=== PATIENT | female | born 1935 | race Caucasian/White ===

== ENCOUNTER 2016-11-22 17:29 | Emergency (ER) | payer MEDICARE ==
[2016-11-22 17:40] VITALS: BP 164/141
--- NOTE | 2016-11-22 17:44 | ED ---
Hypertension - HPI Summary HPI Summary: 81 YEAR OLD FEMALE PRESENTS WITH COMPLAINS OF DIZZINESS AND HYPERTENSION - History of Current Complaint Chief Complaint: UCGeneralIllness Stated Complaint: HIGH BLOOD PRESSURE Time Seen by Provider: 11/22/16 17:41 Hx Obtained From: Patient, Family/[place] Onset/Duration: Started Hours Ago Aggravating Factor(s): Exertion - Allergies/Home Medications Allergies/Adverse Reactions: Allergies Allergy/AdvReac Type Severity Reaction Status Date / Time Penicillins Allergy Severe Difficulty Verified 08/23/15 08:48 Breathing PMH/Surg Hx/FS Hx/Imm Hx Cardiovascular History: Reports: Hx Angina, Hx Hypertension Respiratory History: Reports: Hx Chronic Obstructive Pulmonary Disease (COPD) - NOTED ON CXR ON 08/17/15. 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 - Surgical History Surgery Procedure, Year, and Place: HYSTO, TUBAL - Immunization History Date of Tetanus Vaccine: PT STATES UNSURE Infectious Disease History: No Infectious Disease History: Denies: Traveled Outside the [place] in Last 30 Days - Social History Alcohol Use: Occasionally Substance Use Type: Reports: None Smoking Status (MU): Never Smoked Tobacco Have You Smoked in the Last Year: No Review of Systems Positive: Fatigue Eyes: Negative ENT: Negative Positive: Other - HYPERTENSION Respiratory: Negative Gastrointestinal: Negative Genitourinary: Negative Musculoskeletal: Negative Skin: Negative Positive: Headache, Weakness, Syncope All Other Systems Reviewed And Are Negative: Yes Physical Exam Triage Information Reviewed: Yes Vital Signs On Initial Exam: Initial Vitals Temp Pulse Resp BP Pulse Ox 37.4 C 84 18 164/141 100 11/22/16 17:36 11/22/16 17:36 11/22/16 17:36 11/22/16 17:36 11/22/16 17:36 Vital Signs Reviewed: No Skin: Positive: Warm Head/Face: Positive: Normal Head/Face Inspection ENT: Positive: Normal ENT inspection Neck: Positive: Supple Respiratory/Lung Sounds: Positive: Clear to Auscultation Cardiovascular: Positive: Normal Abdomen Description: Positive: Nontender Diagnostics - Vital Signs Vital Signs Temp Pulse Resp BP Pulse Ox 11/22/16 17:36 37.4 C 84 18 164/141 100 - Laboratory Lab Statement: Any lab studies that have been ordered have been reviewed, and results considered in the medical decision making process. Hypertension Course/Dx - Diagnoses Provider Diagnoses: Hypertension Discharge - Discharge Plan Condition: Guarded Disposition: TRANS HIGHER LVL OF CARE FAC Referrals: Briana Carlson MD [Primary Care Provider] -
== END 2016-11-22 18:20 | disposition short-term general hospital (02) ==
LOC: UCEAST 17:29
DX: I10 Essential (primary) hypertension (principal); R42 Dizziness and giddiness; R53.83 Other fatigue; R55 Syncope and collapse; I20.9 Angina pectoris, unspecified; J44.9 Chronic obstructive pulmonary disease, unspecified; Z85.828 Personal history of other malignant neoplasm of skin; Z88.0 Allergy status to penicillin
CPT/HCPCS: 93005; 99203; G0463

== ENCOUNTER 2016-11-22 18:36 | Emergency (ER) | payer MEDICARE ==
[2016-11-22 21:08] LABS: Hematocrit 38 % (35-47); Hemoglobin 12.6 g/dl (12.0-16.0); Mean Corpuscular HGB Conc 33 g/dl (31-36); Mean Corpuscular Hemoglobin 28 pg (27-31); Mean Corpuscular Volume 83 fL (80-97); Mean Platelet Volume 7 um3 (7.4-10.4); Red Blood Count 4.54 10^6/ul (4.0-5.4); Red Cell Distribution Width 14 % (10.5-15); White Blood Count 5.9 10^3/ul (3.5-10.8)
[2016-11-22 21:27] LABS: Troponin I 0.01 ng/mL (<0.04)
[2016-11-22 21:28] LABS: Albumin 3.4 g/dL (3.2-5.2); BUN/Creatinine Ratio 12.9 (8-20); Calcium 9.3 mg/dL (8.6-10.3); EGFR African American 49.4 (>60); EGFR Non-African American 38.4 (>60); Potassium 4.3 mmol/L (3.5-5.0); Total Bilirubin 0.4 mg/dL (0.2-1.0); Total Protein 6.4 g/dL (6.4-8.9)
--- NOTE | 2016-11-22 21:33 | RAD ---
Indication: Hypertension and vertigo. CT of the brain was performed without IV contrast. Ventricular structures are midline. No midline shift is noted. The extra-axial spaces are unremarkable. There is no evidence of intracranial mass or hemorrhage. No other high or low density lesions are identified. Mastoid air cells and paranasal sinuses are otherwise unremarkable. IMPRESSION: No intracranial mass or hemorrhage is noted.
[2016-11-22 21:40] LABS: T4 8.01 mcg/mL (6.09-12.23)
[2016-11-22 21:40] LABS: Urine Bacteria Absent (Absent); Urine Bilirubin Negative (Negative); Urine Glucose Negative (Negative); Urine Nitrite Negative (Negative)
--- NOTE | 2016-11-22 21:48 | RAD ---
Indication: Hypertension. Single frontal view of the chest performed at 2102 hours was reviewed. Comparison is made with previous exam dated August 17, 2015. No mediastinal shift is noted. Lung healy appear hyperinflated. No pleural fluid, pneumonia or pneumothorax is noted. IMPRESSION: HYPERINFLATED LUNG HEALY WITHOUT EVIDENCE OF ACTIVE CARDIOPULMONARY DISEASE.
[2016-11-22] MEDS ORDERED: Benzonatate CAP* 100 MG PO ONE (22:26)
[2016-11-22 22:52] VITALS: BP 142/68
--- NOTE | 2016-11-23 02:44 | ED ---
Chloe Craft Rebecca, scribed for Tahmina Ferraro MD on 11/22/16 at 2038 . Hypertension - HPI Summary HPI Summary: Pt is an 81 y/o F BIBA from [facility] who presents to ED due to concerns of elevated BP and feeling generalized weakness which began today. Pt reports that she had gone to [facility] initially after taking her BP at home which was about 180 systolic and that she felt "like I couldn't get up and get around." BP at [facility] was 164/141. Notes tinnitus, bilateral hand stiffness and increased urinary frequency. She additionally c/o cough and chest congestion secondary to recent illness that moved into her chest about 3 weeks ago. Denies SALAZAR and any pain. Pt reports that yesterday she had an appointment with Dr. Avila (ENT ) to evaluate tinnitus and she states that it was not her hearing causing the tinnitus and that he suspected a TIA after she described an episode of dizziness and generalized weakness that occurred this August (3 months ago) and another that occurred about 1 month ago after which she was given a Dx of vertigo. PCP is Dr. Carlson. Takes Gabapentin 100 mg TID. - History of Current Complaint Chief Complaint: EDHypertension Stated Complaint: STROKE-LIKE SYMPTOMS-SENT FROM Time Seen by Provider: 11/22/16 20:34 Hx Obtained From: Patient Onset/Duration: Started Hours Ago, Still Present Timing: Constant Reported Blood Pressure Prior To Arrival: 164/[address] [facility] Aggravating Factor(s): Nothing Alleviating Factor(s): Nothing Associated Signs & Symptoms: Weakness - Generalized, Urinary Symptoms - Increased urinary frequency - Allergies/Home Medications Allergies/Adverse Reactions: Allergies Allergy/AdvReac Type Severity Reaction Status Date / Time Penicillins Allergy Severe Difficulty Verified 08/23/15 08:48 Breathing PMH/Surg Hx/FS Hx/Imm Hx Respiratory History: Reports: Hx Chronic Obstructive Pulmonary Disease (COPD) - NOTED ON CXR ON 08/17/15. 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 - Surgical History Surgery Procedure, Year, and Place: HYSTO, TUBAL - Immunization History Date of Tetanus Vaccine: PT STATES UNSURE Infectious Disease History: No Infectious Disease History: Denies: Traveled Outside the [place] in Last 30 Days - Family History Known Family History: Positive: Unknown - Pt was adopted - Social History Lives: With Family - disabled son, other son lives next door Alcohol Use: Occasionally Substance Use Type: Reports: None Smoking Status (MU): Never Smoked Tobacco Have You Smoked in the Last Year: No Review of Systems Positive: Other - Elevated BP Positive: Other - Tinnitus Cardiovascular: Negative Positive: Cough, Other - Chest congestion Positive: frequency - Increased urinary frequency Positive: Other - Bilateral hand stiffness; NEGATIVE: pain Positive: Weakness - Generalized weakness. Negative: Headache Psychological: Normal All Other Systems Reviewed And Are Negative: Yes Physical Exam Triage Information Reviewed: Yes Vital Signs On Initial Exam: Initial Vitals Temp Pulse Resp BP Pulse Ox 99.7 F 81 16 146/59 99 11/22/16 19:00 11/22/16 19:00 11/22/16 19:00 11/22/16 19:00 11/22/16 19:00 Vital Signs Reviewed: Yes Appearance: Positive: No Pain Distress, Well-Nourished, Ill-Appearing Skin: Positive: Warm, Skin Color Reflects Adequate Perfusion Head/Face: Positive: Normal Head/Face Inspection Eyes: Positive: EOMI, CHANDA, Conjunctiva Clear ENT: Positive: Normal ENT inspection, Pharynx normal, TMs normal. Negative: Muffled/hoarse voice Neck: Positive: Supple, Nontender, No Lymphadenopathy, Other: - No bruit Respiratory/Lung Sounds: Positive: Clear to Auscultation, Breath Sounds Present , Other - No respiratory distress Cardiovascular: Positive: RRR, Pulses are Symmetrical in both Upper and Lower Extremities, Other - Brisk capillary refill Abdomen Description: Positive: Nontender, Soft Bowel Sounds: Positive: Present Musculoskeletal: Positive: Strength/ROM Intact, Other - No calf tenderness. Negative: Edema Left, Edema Right Neurological: Positive: Sensory/Motor Intact, Alert, Oriented to Person Place, Time, Normal Gait, Facial Symmetry, Speech Normal Psychiatric: Positive: Normal - [place] Coma Scale Best Eye Response: 4 - Spontaneous Best Motor Response: 6 - Obeys Commands Best Verbal Response: 5 - Oriented Coma Scale Total: 15 Diagnostics - Vital Signs Vital Signs Temp Pulse Resp BP Pulse Ox 11/22/16 20:30 87 15 143/65 99 11/22/16 20:05 27 169/70 11/22/16 20:00 93 20 99 11/22/16 19:30 81 12 157/76 99 11/22/16 19:00 99.7 F 80 15 146/59 100 - Laboratory Result Diagrams: 11/22/16 20:58 11/22/16 20:58 Lab Statement: Any lab studies that have been ordered have been reviewed, and results considered in the medical decision making process. - Radiology CXR Xray Interpretation: No Acute Changes - HYPERINFLATED LUNG HEALY WITHOUT EVIDENCE OF ACTIVE CARDIOPULMONARY DISEASE. ED physician reviewed radiology report and agrees. Radiology Interpretation Completed By: Radiologist - CT Brain CT CT Interpretation: No Acute Changes - No intracranial mass or hemorrhage is noted. ED physician reviewed radiology report and agrees. CT Interpretation Completed By: Radiologist - EKG 2038 Cardiac Rate: NL - 92 bpm EKG Rhythm: Sinus Rhythm EKG Interpretation: Nl AV/IV CT, nl QTC, nl axis Re-Evaluation - Re-Evaluation First Eval Re-Evaluation Time: 22:15 Change: Improved Comment: Pt feels improved, advised about results and pt is comfortable with discharge. Hypertension Course/Dx - Course Assessment/Plan: Pt is an 81 y/o F BIBA from [facility] who presents to ED due to concerns of elevated BP and feeling generalized weakness which began today. Pt reports that she had gone to [facility] initially after taking her BP at home which was about 180 systolic and that she felt "like I couldn't get up and get around. " BP at [facility] was 164/141. Notes tinnitus, bilateral hand stiffness and increased urinary frequency. She additionally c/o cough and chest congestion secondary to recent illness that moved into her chest about 3 weeks ago. Denies SALAZAR and any pain. Pt reports that yesterday she had an appointment with Dr. Avila (ENT) to evaluate tinnitus and she states that it was not her hearing causing the tinnitus and that he suspected a TIA after she described an episode of dizziness and generalized weakness that occurred this August (3 months ago) and another that occurred about 1 month ago after which she was given a Dx of vertigo. Takes Gabapentin 100 mg TID. EKG, CXR and CT brain reveal no acute findings. In the ED course, pt received Tessalon. Pt will be D/C to home with Dx of elevated BP without a Dx of HTN, tinnitus and acute cough with Rx for Tessalon. She understands and agrees. Allergy noted. Elevated BP noted. Pt medications reviewed. - Diagnoses Differential Diagnosis/HQI PQRI: Angina, Hypertension, Hypertensive Crisis, Myocardial Infarction, Renal Disease Provider Diagnoses: Elevated BP without diagnosis of hypertension, Tinnitus, cough, acute Discharge - Discharge Plan Condition: Stable Disposition: HOME Prescriptions: Benzonatate CAP* [Tessalon 100 MG CAP*] 100 mg PO TID #20 cap Patient Education Materials: Hypertension (ED), Acute Cough (ED), Tinnitus (ED) Referrals: Briana Carlson MD [Primary Care Provider] - 2 Days Additional Instructions: Your blood pressures were elevated today. Your chest xray showed no pneumonia or abnormality. Your CT brain did not show a stroke or any abnormality. We gave one dose of Tessalon 100mg for cough. You may fill a prescription for this if it helps your cough. You may also continue your guaifenesin at home (the Robitussin). Have definite follow up with your doctor this week. Return to the ER if you have new or worsening symptoms. The documentation as recorded by the Chloe peralta Rebecca accurately reflects the service I personally performed and the decisions made by , Tahmina Ferraro MD.
== END 2016-11-22 22:57 | disposition home or self-care (01) ==
LOC: ED 18:36
DX: H93.19 Tinnitus, unspecified ear (principal); R53.1 Weakness; R05 Cough; R03.0 Elevated blood-pressure reading, without diagnosis of hypertension
CPT/HCPCS: 36415; 70450; 71010; 80053; 81003; 81015; 82550; 82553; 83605; 83880; 84436; 84484; 85025; 85610; 85730; 87086; 93005; 99283; A9270-GY

== ENCOUNTER 2017-10-27 11:54 | Emergency (ER) | payer MEDICARE ==
--- OUTSIDE RECORDS SUMMARY | 2017-10-27 12:14 | XMS REPORT ---
:1935 External Reference #:[id number] Author Organization [facility] Address [address] [place] [address] [place] [address] Phone [phone] Care Team Providers Name Role Phone Briana Carlson MD Primary Care Physician Unavailable Payers Type Date Identification Numbers Payment Provider Subscriber Health Maintenance Effective: Policy Number: Medicare Vincent Simpson (O) 02/06/2015 [id number] Ppo PayID: [id number] [address] [address] [place] [address] Problems Description No Information Family History Date Family Member(s) Problem(s) Comments General Adopted Social History Type Date Description Comments ETOH Use Denies alcohol use Smoking Patient has never smoked Exercise Type/Frequency Exercises regularly Allergies, Adverse Reactions, Alerts Date Description Reaction Status Severity Comments 04/21/2017 Amoxicillin active hives 04/21/2017 Trimox active 04/21/2017 Penicillin active Medications Medication Date Status Form Strength Qnty SIG Indications Ordering Provider Doxycycline 09/28 Active Capsules 100mg 45cap 1 by mouth Ernesto Serra s twice a day Naima Grossman Alendronate Sodium 09/25 Active Tablets 70mg 4tabs 1 by mouth weekly 1 Ngoc, hour before M.D. breakfast with a full glass of water sitting up Prednisone 07/12 Active Tablets 5mg 60tab 1 by mouth M06.4 Ernesto s every day Naima Grossman Folic Acid 05/02 Active Tablets 1mg 90tab take one s capsule/tab Ngoc, let daily M.D. by mouth Gabapentin Active Capsules 100mg 3x/day Unknown / Hydrochlorothiazid Active Tablets 12.5mg daily Unknown Voltaren Active Gel 1% apply 2 Unknown grams twice daily as needed for pain to the hands Vitamin B-12 Active Tablets 2000 1 by mouth Unknown every day Vitamin D Active Tablets 1000Unit by mouth Unknown everyday Acetaminophen Active Tablets 325mg one tab/day Unknown prn Methotrexate 05/02 Hx Tablets 2.5mg 60tab take 5 s capsules/ta Ngoc, - blets by M.Alejandro 09/28 mouth weekly on wednesdays Prednisone 04/21 Hx Tablets 10mg 30tab Take one by M06.4 s mouth every Ngoc, - other day M.DRaisa 07/12 finished Aspirin Hx Tablets 325mg - 04/21 Medications Administered in Office Medication Date Status Form Strength Qnty SIG Indications Ordering Provider Shingrix no Administered Injection Unknown bill inj-pt 018 brought in Immunizations CPT Code Status Date Vaccine Lot # [id number] Given 12/02/2014 Pneumococcal Conjugate Vaccine 13 Valent For Intramuscular Use [id number] Given 02/06/2003 Pneumonia Vaccine Vital Signs Date Vital Result Comment 09/25/2017 Height 61 inches 5'1" Weight 107.00 lb Heart Rate 71 /min BP Systolic Sitting 118 mmHg BP Diastolic Sitting 63 mmHg Respiratory Rate 14 /min Pain Level 2 BMI (Body Mass Index) 20.2 kg/m2 07/12/2017 Height 61 inches 5'1" Weight 106.00 lb Heart Rate 60 /min BP Systolic Sitting 130 mmHg BP Diastolic Sitting 82 mmHg Respiratory Rate 14 /min Pain Level 1 BMI (Body Mass Index) 20.0 kg/m2 05/16/2017 Height 61 inches 5'1" Weight 106.12 lb Heart Rate 56 /min BP Systolic Sitting 138 mmHg BP Diastolic Sitting 78 mmHg Pain Level 2 O2 % BldC Oximetry 98 % BMI (Body Mass Index) 20.0 kg/m2 04/21/2017 Height 61 inches 5'1" Weight 107.25 lb Heart Rate 81 /min BP Systolic Sitting 158 mmHg BP Diastolic Sitting 68 mmHg Respiratory Rate 14 /min Pain Level 3 BMI (Body Mass Index) 20.3 kg/m2 Results Test Date Test Result H/L Range Note Laboratory test finding 09/25/2017 Erythrocyte Sed Rate 13 mm/Hr 0-40 C Reactive Protein 23.56 mg/L High <8.01 CBC Auto Diff 09/25/2017 White Blood Count 12.3 10^3/uL High 3.5-10.8 Red Blood Count 4.45 10^6/uL 4.00-5.40 Hemoglobin 12.8 g/dL 12.0-16.0 Hematocrit 38 % 35-47 Mean Corpuscular Volume 86 fL 80-97 Mean Corpuscular Hemoglobin 29 pg 27-31 Mean Corpuscular HGB Conc 34 g/dL 31-36 Red Cell Distribution Width 17 % High 10.5-15 Platelet Count 523 10^3/uL High 150-450 Mean Platelet Volume 7.1 um3 Low 7.4-10.4 Abs Neutrophils 11.0 10^3/uL High 1.5-7.7 Abs Lymphocytes 0.9 10^3/uL Low 1.0-4.8 Abs Monocytes 0.3 10^3/uL 0-0.8 Abs Eosinophils 0 10^3/uL 0-0.6 Abs Basophils 0.1 10^3/uL 0-0.2 Abs Nucleated RBC 0 10^3/uL Granulocyte % 89.4 % High 38-83 Lymphocyte % 7.5 % Low 25-47 Monocyte % 2.3 % 0-7 Eosinophil % 0.3 % 0-6 Basophil % 0.5 % 0-2 Nucleated Red Blood Cells % 0 Comp Metabolic Panel 09/25/2017 Sodium 137 mmol/L 135-145 Potassium 4.4 mmol/L 3.5-5.0 Chloride 102 mmol/L 101-111 Co2 Carbon Dioxide 28 mmol/L 22-32 Anion Gap 7 mmol/L 2-11 Glucose 105 mg/dL High 70-100 Blood Urea Nitrogen 16 mg/dL 6-24 Creatinine 1.12 mg/dL High 0.51-0.95 BUN/Creatinine Ratio 14.3 8-20 Calcium 9.5 mg/dL 8.6-10.3 Total Protein 6.3 g/dL Low 6.4-8.9 Albumin 3.7 g/dL 3.2-5.2 Globulin 2.6 g/dL 2-4 Albumin/Globulin Ratio 1.4 1-3 Total Bilirubin 0.50 mg/dL 0.2-1.0 Alkaline Phosphatase 48 U/L 34-104 Alt 11 U/L 7-52 Ast 21 U/L 13-39 Egfr Non- 46.3 >60 Egfr 56.1 >60 1 Laboratory test finding 09/25/2017 Lyme Disease Serology Positive Negative 2 Urinalysis Profile 09/25/2017 Urine Appearance Cloudy Urine Specific [place] 1.006 Low 1.010-1.030 Urine pH 6.0 5-9 Urine Urobilinogen Negative Negative Urine Ketones Negative Negative Urine Protein Negative Negative Urine Leukocytes Negative Negative Urine Blood 2+ Negative Urine Nitrite Negative Negative Urine Bilirubin Negative Negative Urine Glucose Negative Negative Urine White Blood Cell Trace(0-5/hpf) Absent Urine Red Blood Cell Trace(0-2/hpf) Absent Urine Bacteria Absent Absent Urine Squamous Epithelial Cell Present Absent Urine Color Yellow Urine Culture And 09/25/2017 Urine Culture SEE RESULT BELOW 3 Sensitivities Lyme Western Blot 09/25/2017 Lyme Disease IgG Positive Negative Ab WB Lyme Disease IgG Bands Present See Comment kDa 4 Lyme Disease IgM Ab WB Positive Negative Lyme Disease IgM Bands Present p41,p39,p23 kDa Lyme Disease Interpretation See Comment 5 Laboratory test finding 05/17/2017 Erythrocyte Sed Rate 19 mm/Hr 0-40 C Reactive Protein 8.31 mg/L High < 5.00 6 CBC Auto Diff 05/17/2017 White Blood Count 10.5 10^3/uL 3.5-10.8 Red Blood Count 4.83 10^6/uL 4.0-5.4 Hemoglobin 13.1 g/dL 12.0-16.0 Hematocrit 40 % 35-47 Mean Corpuscular Volume 82 fL 80-97 Mean Corpuscular Hemoglobin 27 pg 27-31 Mean Corpuscular HGB Conc 33 g/dL 31-36 Red Cell Distribution Width 15 % 10.5-15 Platelet Count 376 10^3/uL 150-450 Mean Platelet Volume 7.1 um3 Low 7.4-10.4 Abs Neutrophils 7.1 10^3/uL 1.5-7.7 Abs Lymphocytes 2.5 10^3/uL 1.0-4.8 Abs Monocytes 0.5 10^3/uL 0-0.8 Abs Eosinophils 0.3 10^3/uL 0-0.6 Abs Basophils 0.1 10^3/uL 0-0.2 Abs Nucleated RBC 0 10^3/uL Granulocyte % 67.7 % 38-83 Lymphocyte % 23.6 % Low 25-47 Monocyte % 5.1 % 0-7 Eosinophil % 2.8 % 0-6 Basophil % 0.8 % 0-2 Nucleated Red Blood Cells % 0.1 Comp Metabolic Panel 05/17/2017 Sodium 139 mmol/L 139-145 Potassium 3.9 mmol/L 3.5-5.0 Chloride 104 mmol/L 101-111 Co2 Carbon Dioxide 28 mmol/L 22-32 Anion Gap 7 mmol/L 2-11 Glucose 79 mg/dL 70-100 Blood Urea Nitrogen 18 mg/dL 6-24 Creatinine 0.97 mg/dL High 0.51-0.95 BUN/Creatinine Ratio 18.6 8-20 Calcium 9.6 mg/dL 8.6-10.3 Total Protein 6.1 g/dL Low 6.4-8.9 Albumin 3.6 g/dL 3.2-5.2 Globulin 2.5 g/dL 2-4 Albumin/Globulin Ratio 1.4 1-3 Total Bilirubin 0.50 mg/dL 0.2-1.0 Alkaline Phosphatase 44 U/L 34-104 Alt 14 U/L 7-52 Ast 18 U/L 13-39 Egfr Non- 54.8 >60 Egfr 70.5 >60 7 Laboratory test 04/21/2017 Fluid Crystals, Calcium Pyrophos None Seen 8 , 9 [address] Review <SEE NOTE> Body Fluid C&S SEE RESULT BELOW 8, 10 Body Fluid Cell Count 04/21/2017 Body Fluid Source Synovial Fluid 8 Body Fluid Appearance Cloudy 8 Body Fluid Color Colorless 8 Body Fluid Volume 15 mL 8 Body Fluid Neutrophils 85 % 8 Body Fluid Lymph 6 % 8 Body Fluid [place] 9 % 8 Body Fluid Total Cells Counted 100 8 Body Fluid WBC 2561 /mcL 8, 11 Body Fluid RBC 142 /mcL 8 Fluid Reviewed By MD (SEE NOTE) 8, 12 Laboratory test finding 04/11/2017 Uric Acid 4.3 mg/dL 2.3-6.6 13, 14 C Reactive Protein 23.67 mg/L High < 5.00 13, 15 CBC Auto Diff 04/11/2017 White Blood Count 8.4 10^3/uL 3.5-10.8 13 Red Blood Count 4.75 10^6/uL 4.0-5.4 13 Hemoglobin 13.0 g/dL 12.0-16.0 13 Hematocrit 39 % 35-47 13 Mean Corpuscular Volume 82 fL 80-97 13 Mean Corpuscular Hemoglobin 27 pg 27-31 13 Mean Corpuscular HGB Conc 34 g/dL -36 13 Red Cell Distribution Width 13 % 10.5-15 13 Platelet Count 507 10^3/uL High 150-450 13 Mean Platelet Volume 8 um3 7.4-10.4 13 Abs Neutrophils 4.6 10^3/uL 1.5-7.7 13 Abs Lymphocytes 2.4 10^3/uL 1.0-4.8 13 Abs Monocytes 0.6 10^3/uL 0-0.8 13 Abs Eosinophils 0.6 10^3/uL 0-0.6 13 Abs Basophils 0.1 10^3/uL 0-0.2 13 Abs Nucleated RBC 0 10^3/uL 13 Granulocyte % 55.2 % 38-83 13 Lymphocyte % 28.5 % 25-47 13 Monocyte % 7.5 % High 0-7 13 Eosinophil % 7.6 % High 0-6 13 Basophil % 1.2 % 0-2 13 Nucleated Red Blood Cells % 0.1 13 Laboratory test finding 04/11/2017 Erythrocyte Sed Rate 30 mm/Hr 0-40 13 , 16 Cyclic Citrullinated Pep Igg <15.6 U 13, 17 Rheumatoid Factor 64 IU/mL 0-14 13, 18 Comp Metabolic Panel 04/11/2017 Sodium 134 mmol/L 133-145 13 Potassium 4.4 mmol/L 3.5-5.0 13 Chloride 99 mmol/L Low 101-111 13 Co2 Carbon Dioxide 28 mmol/L 22-32 13 Anion Gap 7 mmol/L 2-11 13 Glucose 84 mg/dL 70-100 13 Blood Urea Nitrogen 20 mg/dL 6-24 13 Creatinine 1.14 mg/dL High 0.51-0.95 13 BUN/Creatinine Ratio 17.5 8-20 13 Calcium 9.6 mg/dL 8.6-10.3 13 Total Protein 6.6 g/dL 6.4-8.9 13 Albumin 3.5 g/dL 3.2-5.2 13 Globulin 3.1 g/dL 2-4 13 Albumin/Globulin Ratio 1.1 1-3 13 Total Bilirubin 0.40 mg/dL 0.2-1.0 13 Alkaline Phosphatase 57 U/L 34-104 13 Alt 9 U/L 7-52 13 Ast 21 U/L 13-39 13 Egfr Non- 45.5 >60 13 Egfr 58.5 >60 13, 19 1 Because ethnic data is not always readily available, this report includes an eGFR for both -Americans and non- Americans. The National Kidney Disease Education Program (NKDEP) does not endorse the use of the MDRD equation for patients that are not between the ages of 18 and 70, are , have extremes of body size, muscle mass, or nutritional status, or are non- or non-. According to the National Kidney Foundation, irrespective of diagnosis, the stage of the disease is based on the level of kidney function: Stage Description GFR(mL/min/1.73 m(2)) 1 Kidney damage with normal or decreased GFR 90 2 Kidney damage with mild decrease in GFR 60-89 3 Moderate decrease in GFR 30-59 4 Severe decrease in GFR 15-29 5 Kidney failure <15 (or dialysis) 2 Not diagnostic. Supplemental testing by immunoblot has been ordered by reflex. Test Performed by: [facility] [employer] [address] [place] [address] 3 SEE RESULT BELOW Name: NATE KRAUSE : [address]: Ernesto Grossman MD Acct: [id number] Unit: [id number] AGE: 82 Location: LAB Re09/25/17 SEX: F Status: REG REF SPEC: [id number] MARIANNA: 09/25/17-[address]: Ernesto Grossman MD REQ: [id number] RECD: 09/25/171149 STATUS: COMP _ SOURCE: URINE SPDES: ORDERED: Urine Culture Procedure Result Reported Site Urine Culture Final 09/26/17- 1332 ML No growth of clinically significant organisms * ML - Main Lab . END OF REPORT DEPARTMENT OF PATHOLOGY, [address] [place] [address] Rakesh Rodriguez M.D. Director [facility] # [id number] 4 RESULT: p93,p66,p45,p41,p39,p28,p23,p18 5 Consistent with active or previous infection for B. burgdorferi. IgM blot criteria is of diagnostic utility only during the first 4 weeks of early Lyme disease. ADDITIONAL INFORMATION Per CDC criteria, the Lyme IgG Immunoblot is interpreted as positive if IgG-class antibodies are detected to >=5 B. burgdorferi proteins, and the Lyme IgM Immunoblot is interpreted as positive if IgM-class antibodies are detected to >=2 B. burgdorferi proteins. Immunoblot patterns not meeting these criteria should not be interpreted as positive. Epitopes from certain B. burgdorferi proteins (e.g., p41) are conserved across other bacteria, which may lead to the detection of IgM- and/or IgG-class antibodies on the Lyme disease immunoblots in patients without Lyme disease. Immunoblot should only be ordered on specimens that are positive or equivocal by a FDA-licensed Lyme disease antibody screening test (e.g., EIA). Results of the Lyme IgM immunoblot should not be considered in patients with >=30 days of symptoms. Test Performed by: [facility] [address] [place] [address] 6 Acute inflammation: >10.00 7 Because ethnic data is not always readily available, this report includes an eGFR for both -Americans and non- Americans. The National Kidney Disease Education Program (NKDEP) does not endorse the use of the MDRD equation for patients that are not between the ages of 18 and 70, are , have extremes of body size, muscle mass, or nutritional status, or are non- or non-. According to the National Kidney Foundation, irrespective of diagnosis, the stage of the disease is based on the level of kidney function: Stage Description GFR(mL/min/1.73 m(2)) 1 Kidney damage with normal or decreased GFR 90 2 Kidney damage with mild decrease in GFR 60-89 3 Moderate decrease in GFR 30-59 4 Severe decrease in GFR 15-29 5 Kidney failure <15 (or dialysis) 8 [id number] REVIEWED BY RAKESH RODRIGUEZ MD 10 SEE RESULT BELOW Name: NATE KRAUSE : [address]: Ernesto Grossman MD Acct: [id number] Unit: [id number] AGE: 81 Location: [facility] Re04/21/17 SEX: F Status: REG REF SPEC: [id number] MARIANNA: 04/21/17-[address]: Ernesto Grossman MD REQ: [id number] RECD: 04/21/17 STATUS: COMP _ SOURCE: BODY FLUID SPDESC: ORDERED: BF Rickie/CHI COMMENTS: [id number] Procedure Result Reported Site Body Fluid Gram Stain Final 04/22/17- 706 ML 4+ Neutrophils 4+ Nucleated Cells No Organisms Seen Preparation By Cytospin Smear Body Fluid Culture Final 04/25/17- 907 ML No Growth Day 4 * - Main Lab . END OF REPORT DEPARTMENT OF PATHOLOGY, [address] [place] [address] Rakesh Rodriguez M.D. Director [facility] # [id number] 11 -- REFERENCE VALUE -- Synovial: <150/mcL Peritoneal: <500/mcL Pleural: <500/mcL Pericardial: <500/mcL 12 Acute inflammation present. Recommend correlation with microbiology culture studies. 13 [id number] 14 [id number] 15 Acute inflammation: >10.00 16 [id number] 17 REFERENCE VALUE <20.0 (Negative) Test Performed by: [address] [id number] 18 Performed by [facility], [address] [place] [id number] [email or web address], Cole Cash MD - Lab. Director Test Performed by: [facility] [address] [place] [id number] 19 Because ethnic data is not always readily available, this report includes an eGFR for both -Americans and non- Americans. The National Kidney Disease Education Program (NKDEP) does not endorse the use of the MDRD equation for patients that are not between the ages of 18 and 70, are , have extremes of body size, muscle mass, or nutritional status, or are non- or non-. According to the National Kidney Foundation, irrespective of diagnosis, the stage of the disease is based on the level of kidney function: Stage Description GFR(mL/min/1.73 m(2)) 1 Kidney damage with normal or decreased GFR 90 2 Kidney damage with mild decrease in GFR 60-89 3 Moderate decrease in GFR 30-59 4 Severe decrease in GFR 15-29 5 Kidney failure <15 (or dialysis) Procedures Date CPT Code Description Status 07/21/2017 Bone Mineral Density Test Completed 04/21/2017 28969 Inject/Drain Joint/Bursa Major W/O US Completed 08/18/2015 15671 Stress ECHO Interpretation/Report Hospital Completed 08/18/2015 67937 Treadmill Interp/Report Only Completed 08/18/2015 13873 Stress Test Supervsn W/Out I/R Completed 08/17/2015 33362 EKG, Interpretation Only Completed Encounters Type Date Location Provider CPT E/M Dx Office Visit 09/25/2017 [facility]ology Services Ernesto Grossman M.D. 76435 M05.79 9:40a Of [facility] Z79.899 W57.xxxA Z79.52 Office Visit 07/12/2017 9:40a [facility] Ernesto Grossman 75701 M05.79 Of [facility] Z79.899 M17.9 Z79.52 M85.89 Office Visit 05/16/2017 4:20p [facility] Ernesto Grossman 19445 M05.79 Of [facility] Z79.899 M17.9 M06.4 Office Visit 04/21/2017 11:00a [facility] Of Ernesto Grossman, 93589 M06.4 Ginny Mcnamara M17.9 M25.562 M79.646 Office Visit 08/18/2015 10:26a [facility],[place] [address] R07.9 Hospitalists I10 Office Visit 08/17/2015 10:26a [facility],[place] [address] R07.9 Hospitalists I10 Plan of Care Future Appointment(s):12/18/2017 9:20 am - Ernesto Grossman M.D. 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
[2017-10-27 17:26] LABS: ABS Basophils 0.1 10^3/ul (0-0.2); ABS Eosinophils 0 10^3/ul (0-0.6); ABS Monocytes 0.4 10^3/ul (0-0.8); ABS Neutrophils 3.7 10^3/ul (1.5-7.7); ABS Nucleated RBC 0 10^3/ul; Eosinophil % 0.3 % (0-6); Hematocrit 45 % (35-47); Hemoglobin 15.2 g/dl (12.0-16.0); Lymphocyte % 41.9 % (25-47); Mean Corpuscular HGB Conc 34 g/dl (31-36); Mean Corpuscular Hemoglobin 29 pg (27-31); Mean Corpuscular Volume 86 fL (80-97); Mean Platelet Volume 7.5 um3 (7.4-10.4); Nucleated Red Blood Cells % 0.1; Platelet Count 323 10^3/ul (150-450); Red Blood Count 5.21 10^6/ul (4.00-5.40); Red Cell Distribution Width 15 % (10.5-15); White Blood Count 7.1 10^3/ul (3.5-10.8)
[2017-10-27 17:34] LABS: INR 0.82 (0.77-1.02)
--- NOTE | 2017-10-27 17:42 | ED ---
Abdominal Pain/Female - HPI Summary HPI Summary: An 82 y/o F presents to ED with acute on chronic, R-sided and midline abd pain onset approx one week worsening in the past two days. Pain is intermittent and described as a deep ache. Pt had a recent dx of Lyme dx and she has been taking Doxy. Her last dose was two days ago. She has been losing weight, and ate some dairy, hoping to get her strength back. Associated sx: diarrhea this AM and constipation prior, dizzy, lightheaded, mild R-sided back pain, chills. Denies CP, SOB, urinary symptoms. PSHx: tubal , hysterectomy/oophorectomy. - History of Current Complaint Chief Complaint: EDAbdPain Stated Complaint: WEAKNESS,RT FLANK PAIN Time Seen by Provider: 10/27/17 17:07 Hx Obtained From: Patient Onset/Duration: Gradual Onset, Lasting Days, Still Present Timing: Intermittent Episode Lasting Severity Initially: Moderate Severity Currently: Moderate Pain Intensity: 8 Pain Scale Used: 0-10 Numeric Location: Other - R-sided and midline abd Radiates: Yes Radiates to: Back - R-side back pain Aggravating Factor(s): Food - dairy Associated Signs and Symptoms: Positive: Dizzy, Constipation, Diarrhea, Other: - pos: lightheadedness. Negative: Urinary Symptoms Allergies/Adverse Reactions: Allergies Allergy/AdvReac Type Severity Reaction Status Date / Time Penicillins Allergy Difficulty Verified 10/27/17 11:59 Breathing Home Medications: Home Medications Alendronate (NF) [Fosamax (NF)] 70 mg PO WEEKLY 10/27/17 [History Confirmed ] Folic Acid TAB* [Folvite TAB*] 1 mg PO DAILY 10/27/17 [History Confirmed ] Hydrochlorothiazide TAB* [Hydrodiuril TAB*] 12.5 mg PO DAILY 10/27/17 [History Confirmed 10/27/17] Methotrexate TAB* 12.5 mg PO WEEKLY 10/27/17 [History Confirmed 10/27/17] predniSONE TAB* [Deltasone TAB*] 5 mg PO DAILY 10/27/17 [History Confirmed 10/27] PMH/Surg Hx/FS Hx/Imm Hx Previously Healthy: No - Lyme Cardiovascular History: Reports: Hx Angina, Hx Hypertension Respiratory History: Reports: Hx Chronic Obstructive Pulmonary Disease (COPD) - NOTED ON CXR ON 08/17/15. 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 Negative: Fever Negative: Erythema Negative: Sore Throat Negative: Chest Pain Negative: Shortness Of Breath, Cough Positive: Abdominal Pain, Diarrhea, Other - pos: constipation. Negative: Vomiting, Nausea Negative: dysuria, hematuria Musculoskeletal: Other - pos: mild R sided back pain Negative: Edema Negative: Rash Neurological: Other - pos: dizziness/lightheadedness All Other Systems Reviewed And Are Negative: Yes Physical Exam - Summary Physical Exam Summary: Constitutional: Well-developed, Well-nourished, Alert. (-) Distressed Skin: Warm, Dry HENT: Normocephalic; Atraumatic Eyes: Conjunctiva normal Neck: Musculoskeletal ROM normal neck. (-) JVD, (-) Stridor, (-) Tracheal deviation Cardio: Rhythm regular, rate normal, Heart sounds normal; Intact distal pulses; The pedal pulses are 2+ and symmetric. Radial pulses are 2+ and symmetric. (-) Murmur Pulmonary/Chest wall: Effort normal. (-) Respiratory distress, (-) Wheezes, (-) Rales Abd: Soft, RLQ tenderness, (-) Distension, (-) Guarding, (-) Rebound Musculoskeletal: (-) Edema Lymph: (-) Cervical adenopathy Neuro: Alert, Oriented x3 Psych: Mood and affect Normal Triage Information Reviewed: Yes Vital Signs On Initial Exam: Initial Vitals Temp Pulse Resp BP Pulse Ox 99.6 F 76 16 162/76 98 10/27/17 11:59 10/27/17 11:59 10/27/17 11:59 10/27/17 11:59 10/27/17 11:59 Vital Signs Reviewed: Yes Diagnostics - Vital Signs Vital Signs Temp Pulse Resp BP Pulse Ox 10/27/17 16:42 70 176/66 99 10/27/17 14:06 9.3 F 80 16 151/65 100 10/27/17 11:59 99.6 F 76 16 162/76 98 - Laboratory Lab Results: Lab Results 10/27/17 Range/Units 17:15 WBC 7.1 (3.5-10.8) 10^3/ul RBC 5.21 (4.00-5.40) 10^6/ul Hgb 15.2 (12.0-16.0) g/dl Hct 45 (35-47) % MCV 86 (80-97) fL MCH 29 (27-31) pg MCHC 34 (31-36) g/dl RDW 15 (10.5-15) % Plt Count 323 (150-450) 10^3/ul MPV 7.5 (7.4-10.4) um3 Neut % (Auto) 51.8 (38-83) % Lymph % (Auto) 41.9 (25-47) % [place] % (Auto) 5.0 (0-7) % Eos % (Auto) 0.3 (0-6) % Baso % (Auto) 1.0 (0-2) % Absolute Neuts (auto) 3.7 (1.5-7.7) 10^3/ul Absolute Lymphs (auto) 3.0 (1.0-4.8) 10^3/ul Absolute Monos (auto) 0.4 (0-0.8) 10^3/ul Absolute Eos (auto) 0 (0-0.6) 10^3/ul Absolute Basos (auto) 0.1 (0-0.2) 10^3/ul Absolute Nucleated RBC 0 10^3/ul Nucleated RBC % 0.1 Result Diagrams: 10/27/17 17:15 10/27/17 17:15 Lab Statement: Any lab studies that have been ordered have been reviewed, and results considered in the medical decision making process. - Radiology CXR Xray Interpretation: Positive (See Comments) - IMPRESSION: COPD. No active cardiopulmonary dz. ED provider has reviewed this report. Radiology Interpretation Completed By: Radiologist Re-Evaluation - Re-Evaluation 1 Re-Evaluation Time: 18:27 Change: Unchanged Comment: Pt is drinking the contrast. 2 Re-Evaluation Time: 18:38 Change: Worse Comment: Pt is visible uncomfortable, she confirms she is having pain. Will order pain med. Abdominal Pain Fem Course/Dx - Course Course Of Treatment: Pt will be signed out to Dr. Sharan MD at shift change pending CT results. - Diagnoses Provider Diagnoses: Acute bilateral upper abdominal pain Discharge - Sign-Out/Discharge Documenting (check all that apply): Sign-Out Patient Signing out patient TO: Kumar Tsang - CT results - Discharge Plan Condition: Good Disposition: HOME Prescriptions: Famotidine TAB* [Pepcid 20 MG TAB*] 20 mg PO BID #25 tab Patient Education Materials: Acute Abdominal Pain (ED) Referrals: Briana Carlson MD [Primary Care Provider] - - Billing Disposition and Condition Condition: GOOD Disposition: Home - Attestation Statements Document Initiated by Scribe: Yes Documenting Scribe: herrera Provider For Whom Scribe is Documenting (Include Credential): keven zuniga Scribe Attestation: herrera Craft scribed for keven zuniga on 11/02/17 at 1053. Scribe Documentation Reviewed: Yes Provider Attestation: The documentation as recorded by the herrera peralta accurately reflects the service I personally performed and the decisions made by keven holt md
[2017-10-27 17:45] LABS: EGFR Non-African American 52.8 (>60)
[2017-10-27] MEDS ORDERED: Ondansetron INJ* 2 MG/ML VIAL IV ONE (18:03)
[2017-10-27] MEDS ORDERED: Ondansetron ODT TAB* 4 MG PO ONE (18:03)
[2017-10-27] MEDS ORDERED: Morphine VIAL* 10 MG/ML 1 ML VIAL IV ONE (18:03)
--- NOTE | 2017-10-27 18:04 | RAD ---
HISTORY: DIZZINESS COMPARISONS: November 22, 2016 VIEWS: 1: frontal portable view of the chest at 5:20 PM. The patient is obliqued to the right. FINDINGS: LINES AND TUBES: None. CARDIOMEDIASTINAL SILHOUETTE: The cardiomediastinal silhouette is normal for portable technique. PLEURA: The costophrenic angles are sharp. No pleural abnormalities are noted. LUNG PARENCHYMA: There is hyperinflation. ABDOMEN: The upper abdomen is clear. There is no subphrenic gas. BONES AND SOFT TISSUES: No bone or soft tissue abnormalities are noted. IMPRESSION: COPD. NO ACTIVE CARDIOPULMONARY DISEASE.
[2017-10-27 18:26] LABS: Urine Appearance Clear; Urine Blood Negative (Negative); Urine Color Yellow; Urine Ketones Negative (Negative); Urine Protein Negative (Negative); Urine Specific Gravity 1.004 (1.010-1.030); Urine Urobilinogen Negative (Negative)
[2017-10-27] MEDS ORDERED: Iodixanol* (CONTRAST) 320 MG/ML 100 ML SDV IV ONE (18:31)
--- NOTE | 2017-10-27 20:01 | RAD ---
EXAM: CT Abdomen and Pelvis With Intravenous Contrast CLINICAL HISTORY: 82 years old, female; Pain; Abdominal pain; Acute; Additional info: Abd pain, diarrhea, rlq tenderness TECHNIQUE: Axial computed tomography images of the abdomen and pelvis with intravenous contrast. All CT scans at this facility use at least one of these dose optimization techniques: automated exposure control; mA and/or kV adjustment per patient size (includes targeted exams where dose is matched to clinical indication); or iterative reconstruction. Coronal and sagittal reformatted images were created and reviewed. CONTRAST: 54 mL of VISIPAQUE 320 administered intravenously. COMPARISON: A/P W CT ABD/PEL W 02/20/2014 12:43 PM FINDINGS: Lung bases: Normal. No mass. No consolidation. ABDOMEN: Liver: Normal. No masses. Portal and hepatic veins are patent. Gallbladder and bile ducts: No radiopaque gallstones, wall thickening, or pericholecystic fluid. Pancreas: Dilated main pancreatic duct measuring up to 0.6 cm which terminates at the ampulla. No focal lesions or distal parenchymal atrophy. Spleen: Normal. No splenomegaly. Adrenals: Normal. No mass. Kidneys and ureters: Low attenuating cortical foci within the kidneys bilaterally including simple cyst left inferior pole measuring 1.5 cm and indeterminate lesion right lower pole measuring 1.2 cm. No calculi or pelvocaliectasis. Stomach and bowel: Incompletely distended grossly normal stomach. Normal caliber small bowel. Distal colonic diverticula without adjacent inflammatory changes or associated wall thickening. PELVIS: Appendix: Nonvisualized appendix with no secondary findings to suggest appendicitis. Bladder: Thin-walled bladder with no focal nodularity, perivesicular stranding, or calcifications. Reproductive: Uterus and ovaries are surgically absent. ABDOMEN and PELVIS: Intraperitoneal space: Normal. No pneumoperitoneum. No ascities. Bones/joints: The spine demonstrates mild degenerative changes at multiple levels. Soft tissues: Normal. No hernias. Vasculature: The aorta demonstrates moderate atherosclerotic calcification. Patent IVC. No abdominal aortic aneurysm. Lymph nodes: Normal. No enlarged lymph nodes. IMPRESSION: 1. No CT findings to correlate with patient's symptomatology. Specifically no appendicitis. 2. Persistently dilated pancreatic duct with etiologies including pancreatic ductal stenosis, obstruction, and less likely neoplasm. Consider ERCP for characterization. 3. Left simple renal cyst and right indeterminate lesion. Consider followup multiphase or MRI. 4. Distal colonic diverticulosis.
[2017-10-27] MEDS ORDERED: Famotidine TAB* 20 MG PO ONE (22:35)
--- NOTE | 2017-10-27 22:35 | ED ---
Progress - Progress Note Progress Note: This is an elderly woman who came to the emergency department with a several week history of abdominal pain in the upper abdomen, worse over the last couple of days. Physical exam this time is unremarkable with no guarding or rebound tenderness only mild upper abdominal tenderness. Bowel sounds are present. The patient appears generally well. Her diagnostic studies are unremarkable, particular her CT scan of the abdomen does not show any signs of acute infection. The pain developed in the context of taking doxycycline that was prescribed for Lyme disease. I suspect she may have developed the pain in relation to that and now that she is often over the last day or 2 complete her symptoms will remit with some acid blocking medication. Re-Evaluation - Re-Evaluation 1 Re-Evaluation Time: 18:27 Change: Unchanged Comment: Pt is drinking the contrast. 2 Re-Evaluation Time: 18:38 Change: Worse Comment: Pt is visible uncomfortable, she confirms she is having pain. Will order pain med. Course/Dx - Course Course Of Treatment: Pt will be signed out to Dr. Sharan MD at shift change pending CT results. - Diagnoses Provider Diagnoses: Acute bilateral upper abdominal pain Discharge - Sign-Out/Discharge Documenting (check all that apply): Patient Departure, Receiving Sign-Out Signing out patient TO: Kuamr Tsang Receiving patient FROM: Farhan Hodge - Discharge Plan Condition: Good Disposition: HOME Prescriptions: Famotidine TAB* [Pepcid 20 MG TAB*] 20 mg PO BID #25 tab Patient Education Materials: Acute Abdominal Pain (ED) Referrals: Briana Carlson MD [Primary Care Provider] - - Billing Disposition and Condition Condition: GOOD Disposition: Home
[2017-10-27 23:16] VITALS: BP 158/77
== END 2017-10-27 23:15 | disposition home or self-care (01) ==
LOC: ED 11:54
DX: R10.10 Upper abdominal pain, unspecified (principal); R42 Dizziness and giddiness; K59.00 Constipation, unspecified; R19.7 Diarrhea, unspecified
CPT/HCPCS: 36415; 71045; 74177; 80053; 81003; 83605; 84484; 85025; 85610; 85730; 87040; 96374; 99284; A9270-GY; J2270; J2405; Q9967